=== PATIENT | male | born 1975 | race Caucasian/White ===

== ENCOUNTER 2017-03-03 10:04 | Emergency (ER) | payer OTHER ==
[~2017-03-03] VITALS: Ht 172.7 cm; Wt 102.1 kg
[~2017-03-03 10:04] MED LIST: EFFEXOR XR150 MG PO; PRILOSEC40 MG PO
[2017-03-03] MEDS ORDERED: ATORVASTATIN CA40 MG PO (10:14)
[2017-03-03] MEDS ORDERED: ISENTRESS400 MG PO (12:23)
[2017-03-03] MEDS ORDERED: TRUVADA 200 MG1 EACH PO (12:23)
== END 2017-03-03 12:37 | disposition home or self-care (01) ==
LOC: ED 10:04
DX: Z77.21 Contact with and (suspected) exposure to potentially hazardous body fluids (principal); Z90.79 Acquired absence of other genital organ(s); Z79.899 Other long term (current) drug therapy
CPT/HCPCS: 84460; 86703; 86707; 86803; 87350; 99283